=== PATIENT | female | born 1960 | race American Indian/Alaskan Native ===

== ENCOUNTER 2018-08-17 08:16 | Day surgery (SDC) | payer BC ==
[2018-08-17 08:46] VITALS: BMI 32.1
[2018-08-17 08:52] VITALS: O2SAT 100
--- NOTE | 2018-08-17 10:23 | CP.SDSHP ---
Same Day Surgery H & P - History Proposed Procedure: colonoscopy - Previous Medical/Surgical History Cardiac: Hypertension Endocrine/Metabolic: Diabetes - Allergies Allergies: Allergies No Known Allergies Allergy (Verified 02/05/14 13:15) - Physical Exam Vital Signs: Vital Signs 08/17/18 08:46 Temperature 97.6 F Pulse Rate 64 Respiratory 19 Rate Blood Pressure 159/78 H O2 Sat by Pulse 100 Oximetry - Date & Time Date: 08/17/18 Time: 10:05 Short Stay Discharge - Short Stay Discharge Admitting Diagnosis/Reason for Visit: HISTORY OF COLONIC POLYPS Disposition: HOME/ ROUTINE
[2018-08-17] MEDS ORDERED: Lactated Ringer's 500 ML IV ONE (11:28)
[2018-08-17] MEDS ORDERED: Lidocaine 2% Jelly (5 ml) TOP ONE (11:30)
[2018-08-17] MEDS ORDERED: Midazolam 2 MG/2 ML VIAL ONE (11:30)
[2018-08-17] MEDS ORDERED: Propofol 10 mg/ml Inj (20 ML) ONE (11:30)
[2018-08-17] MEDS ORDERED: Lidocaine 2% Jelly (Uro-Jet) TOP ONE (11:48)
[2018-08-17 12:37] VITALS: TEMP 97.3
[2018-08-17 13:00] VITALS: BP 155/74; PULSE 62; RESP 15
== END 2018-08-17 13:00 | disposition home or self-care (01) ==
LOC: C.ENDO 08:16
PROVIDERS: ATTEND Colon & Rectal Surgery
DX: Z12.11 Encounter for screening for malignant neoplasm of colon (principal); K63.5 Polyp of colon; K57.30 Diverticulosis of large intestine without perforation or abscess without bleeding; Z86.010 Personal history of colon polyps; I10 Essential (primary) hypertension; E11.9 Type 2 diabetes mellitus without complications; K64.4 Residual hemorrhoidal skin tags; K64.8 Other hemorrhoids
CPT/HCPCS: 45380; 82948; 88305; J2250; J2704; J7120

== ENCOUNTER 2018-08-17 14:03 | Outpatient (CLI) | payer BC | END 2018-08-17 14:04 | disposition home or self-care (01) | LOC: C.MAMMO 14:04 | DX: Z12.31 Encounter for screening mammogram for malignant neoplasm of breast (principal) ==